=== PATIENT | male | born 1980 | race Caucasian/White ===

== ENCOUNTER 2024-07-21 11:30 | Emergency (ER) | payer OTHER, SELFPAY ==
[2024-07-21] VITALS (20 sets, daily range): BP systolic 124–146; BP diastolic 76–99; PULSE 52–72; RESP 9–27; TEMP 37.1; O2SAT 94–99; BMI 25.8
--- NOTE | 2024-07-21 11:53 | PC.NURSE ---
This RN informed provider of patient CIWA scale and relayed triage information. No new orders at this time. This RN placed seizure pads on bedside.
[2024-07-21 12:19] LABS: Add Manual Diff / Slide Review NO; Basophils Absolute Auto 0 /uL (0-100); Basophils Percent Auto 0.6 % (0-2); Eosinophils Absolute Auto 0 /uL (0-450); Eosinophils Percent Auto 0.9 % (2-4); Hematocrit 39.8 % (41-53); Hemoglobin 13.8 g/dL (13.5-17.5); Lymphocytes Absolute Auto 1600 /uL (1100-4500); Lymphocytes Percent Auto 30.5 % (25-40); Mean Corpuscular HGB Conc 34.6 % (30-36); Mean Corpuscular Hemoglobin 29.8 PG (26-34); Mean Corpuscular Volume 86.2 fL (80-100); Monocytes Absolute Auto 300 /uL (0-900); Monocytes Percent Auto 5.7 % (3-14); Neutrophils Absolute Auto 3300 /uL (1500-7000); Neutrophils Percent Auto 62.3 % (50-75); Platelet Count 227 X10^3/uL (150-400); Red Blood Cell Count 4.61 X10^6/uL (4.5-5.9); Red Cell Distribution Width 14.2 % (11.6-14.8); White Blood Cell Count 5.2 X10^3/uL (4.5-11.0)
[2024-07-21] MEDS: LORazepam 2 MG/ML INJ IV ×2 (12:21→14:26)
--- NOTE | 2024-07-21 12:29 | ED.ALCOHOL ---
HPI - Alcohol General Chief Complaint: Toxicology Problem Stated Complaint: diff breathing Time Seen by Provider: 07/21/24 11:51 Source: patient Mode of arrival: Ambulatory History of Present Illness HPI narrative: This is a 44-year-old man presenting with concerns about alcohol withdrawal. He says that he drinks daily ?a lot?. Has previously been through inpatient detox. He has not had alcohol withdrawal seizures. Today he feels anxious after not drinking since last night. He has not having nausea vomiting or abdominal pain. He has not having suicidal or homicidal ideation and he has not hallucinating. He lives on [facility] He has not interested in going to detox today although he has been studying inpatient detox programs. He is unaccompanied, says that he plans to return to [facility] via taxi and the [place]. He agrees that he will not drive today. He does have a primary care provider in [place] Related Data Allergies Allergy/AdvReac Type Severity Reaction Status Date / Time amoxicillin Allergy Hives Verified 07/21/24 11:34 Patient History Social History Smoking Status: Never smoker Smoking Status: Never smoker Alcohol type: beer and wine Exam Initial Vital Signs Initial Vital Signs: Vital Signs Temperature 98.7 F 07/21/24 11:34 Pulse Rate 59 L 07/21/24 11:34 Respiratory Rate 18 07/21/24 11:34 Blood Pressure 143/94 H 07/21/24 11:34 Pulse Oximetry 98 07/21/24 11:34 Oxygen Delivery Method Room Air 07/21/24 11:34 He has not tachycardic or hypertensive [facility] Other: Normocephalic atraumatic Resp Other: Normal respiratory effort breath sounds are clear Cardio Other: Normal heart rate regular rhythm rate no murmur or gallop GI Other: Abdomen is soft and nontender Neuro Other: Alert and fully oriented without tremors Course Course Course Narrative: At 2:00 p.m., patient is rechecked. Not appreciably tremulous, not hypertensive and not tachycardic. Does not want us to attempt to transfer him to a detox program. I am going to give him another dose of lorazepam and then he will be discharged. He has reiterated that he has a recycler forklift driver truck driver coming. Orders Ordered: ED Orders 07/21/24 12:10 CBC Auto Diff [Complete Blood Count AUTO DIFF] Stat CMP [Comprehensive Metabolic Panel] Stat ETOH [Ethanol (ETOH)] Stat Discontinued Medications Lorazepam (Lorazepam 2 Mg/Ml Inj) 2 mg IV NOW ONE Stop: 07/21/24 11:54 Last Admin: 07/21/24 12:21 Dose: 2 mg Documented By: RB Vital Signs Vital signs: Vital Signs - 8 hr 07/21/24 11:34 07/21/24 11:46 07/21/24 11:47 Temperature 98.7 F Pulse Rate 59 L 57 L 59 L Respiratory Rate 18 10 L Blood Pressure 143/94 H Pulse Oximetry 98 98 Oxygen Delivery Method Room Air 07/21/24 11:47 07/21/24 11:50 07/21/24 11:50 Temperature Pulse Rate 63 Respiratory Rate 21 Blood Pressure 133/89 141/83 H Pulse Oximetry 96 Oxygen Delivery Method 07/21/24 12:00 07/21/24 12:00 07/21/24 12:30 Temperature Pulse Rate 60 72 Respiratory Rate 17 24 Blood Pressure 132/87 Pulse Oximetry 97 98 Oxygen Delivery Method 07/21/24 13:00 07/21/24 13:30 07/21/24 14:00 Temperature Pulse Rate 57 L 55 L 52 L Respiratory Rate 27 H 14 11 L Blood Pressure Pulse Oximetry 98 97 98 Oxygen Delivery Method MDM - Alcohol Lab Data 07/21/24 12:10 07/21/24 12:10 Labs: Lab Results 07/21/24 Range/Units 12:10 WBC 5.2 (4.5-11.0) X10^3/uL RBC 4.61 (4.5-5.9) X10^6/uL Hgb 13.8 (13.5-17.5) g/dL Hct 39.8 L (41-53) % MCV 86.2 (80-100) fL MCH 29.8 (26-34) PG MCHC 34.6 (30-36) % RDW 14.2 (11.6-14.8) % Plt Count 227 (150-400) X10^3/uL Neut % (Auto) 62.3 (50-75) % Lymph % (Auto) 30.5 (25-40) % [place] % (Auto) 5.7 (3-14) % Eos % (Auto) 0.9 L (2-4) % Baso % (Auto) 0.6 (0-2) % Neut # (Auto) 3300 (5929-8344) /uL Lymph # (Auto) 1600 (1333-5356) /uL [place] # (Auto) 300 (0-900) /uL Eos # (Auto) 0 (0-450) /uL Baso # (Auto) 0 (0-100) /uL Sodium 138 (137-145) mmol/L Potassium 4.4 (3.4-5.1) mmol/L Chloride 104 (98-107) mmol/L Carbon Dioxide 26 (22-32) mmol/L BUN 20 (9-20) mg/dL Creatinine 0.97 (0.66-1.25) mg/dL Estimated GFR > 60 (>60) mL/min BUN/Creatinine Ratio 20.6 (6-22) Glucose 110 H (70-100) mg/dL Calcium 9.6 (8.4-10.2) mg/dL Total Bilirubin 0.4 (0.2-1.3) mg/dL AST 49 (17-59) IU/L ALT 37 (<50) IU/L Alkaline Phosphatase 72 (38-126) U/L Total Protein 7.8 (6.3-8.2) g/dL Albumin 4.8 (3.5-5.0) g/dL Globulin 3.0 (1.7-4.1) g/dL Albumin/Globulin Ratio 1.6 (1.0-2.8) Ethyl Alcohol < 10 ( - 10) mg/dL Discharge Plan Departure Patient Disposition: Home Clinical Impression: Alcohol withdrawal syndrome Activity Restrictions/Additional Instructions: You are in the process of withdrawing from alcohol. This can be uncomfortable and at times even dangerous. I have given you a dose of lorazepam which should help initially. You may need further medication during the 1st few days of alcohol withdrawal. I think care plan to go to an alcohol rehab program is a good 1 and I hope that you are able to start this soon. If you are having increasing withdrawal symptoms with anxiety and tremors, you can return to the emergency department, or follow up with her primary care provider. As we discussed, you should not drive today as I gave a dose of lorazepam. Stand Alone Forms: Patient Portal/API/Survey
[2024-07-21 12:31] LABS: Alanine Aminotransferase 37 IU/L (<50); Albumin 4.8 g/dL (3.5-5.0); Albumin Globulin Ratio 1.6 (1.0-2.8); Alkaline Phosphatase 72 U/L (38-126); Aspartate Aminotransferase 49 IU/L (17-59); BUN Creatinine Ratio 20.6 (6-22); Bilirubin Total 0.4 mg/dL (0.2-1.3); Blood Urea Nitrogen 20 mg/dL (9-20); Calcium 9.6 mg/dL (8.4-10.2); Carbon Dioxide 26 mmol/L (22-32); Chloride 104 mmol/L (98-107); Estimated Glomerular Filt Rate > 60 mL/min (>60); Ethanol (ETOH) < 10 mg/dL; Glucose 110 mg/dL (70-100); HEMOLYSIS < 15 (0-50); Potassium 4.4 mmol/L (3.4-5.1); Sodium 138 mmol/L (137-145); Total Protein 7.8 g/dL (6.3-8.2)
== END 2024-07-21 16:35 | disposition home or self-care (01) ==
PROVIDERS: Emergency Provider Emergency Medicine
DX: F10.239 Alcohol dependence with withdrawal, unspecified (principal); F41.9 Anxiety disorder, unspecified; Y90.0 Blood alcohol level of less than 20 mg/100 ml
CPT/HCPCS: 36415; 80053; 80320; 85025; 96374; 96376; 99284; J2060